=== PATIENT | female | born 1960 | race African-American/Black ===

== ENCOUNTER → 2016-12-04 | Outpatient (CLI) | payer OTHER ==
[2016-05-20 17:15] VITALS: BP 134/73
--- NOTE | 2016-12-04 12:05 | KCIC ---
Examination: Ultrasound pelvis. HISTORY Dysfunctional uterine bleeding. COMPARISON None available. FINDINGS The uterus measures 5.3 x 3.3 x 3.9 centimeters. The endometrium measures 1.02 centimeters in thickness. The right ovary measures 2.1 x 1.5 x 2.6 centimeters. The left ovary measures 2.0 x 1.0 x 1.9 centimeters. Blood flow identified right and left ovaries. No evidence of free fluid identified in the pelvis. The uterus is retroflexed. IMPRESSION Prominent appearing endometrium measuring 1 centimeter in transverse dimension. If patient is postmenopausal (given the age), this could represent thickened endometrium with differential of endometrial hyperplasia, drug therapy, endometrial malignancy. Clinical correlation is suggested. Electronically signed by: Troy Leigh (Dec 04, 2016 12:04:04)
--- NOTE | 2016-12-04 12:09 | KCIC ---
Examination: Ultrasound abdomen complete HISTORY History of pelvic pain. COMPARISON None available. Findings: The visualized pancreas grossly appears unremarkable. The visualized IVC, aorta appear patent. There is probable mild increased echogenicity noted throughout the liver likely hepatic steatosis. No evidence of gallstones identified.The gallbladder wall thickness measures 1.3 millimeters. The common bile duct measures 3.6 millimeters in transverse dimension. The right kidney measures 10.6 x 4.1 x 5.9 centimeters. The left kidney measures 10.6 x 5.0 x 3.3 centimeters. The spleen measures 7.9 centimeters in length. IMPRESSION Probable mild increase echogenicity of the liver likely hepatic steatosis, otherwise unremarkable exam. Electronically signed by: Troy Leigh (Dec 04, 2016 12:08:16)
--- NOTE | 2016-12-04 12:12 | KCIC ---
Examination: Two-view soft tissue neck HISTORY History of bilateral posterior neck swelling. COMPARISON None Findings : No evidence of prevertebral soft tissue swelling identified. There is mild to moderate intervertebral disc height loss identified at C4-C5, C5-C6 vertebral levels. The facets are well aligned. Small anterior osteophyte formation identified at C4, C5 vertebral levels. The visualized epiglottis, grossly appears unremarkable. IMPRESSION Moderate degenerative changes cervical spine. Electronically signed by: Troy Leigh (Dec 04, 2016 12:11:13)
--- NOTE | 2016-12-04 12:38 | KCIC ---
Examination: Two views chest. HISTORY History of upper back soft tissue swelling. COMPARISON None available Findings: The cardiomediastinal silhouette grossly appears unremarkable. There is no acute infiltrate or visualized pneumothorax identified. Impression: No acute cardiopulmonary findings. Electronically signed by: Troy Leigh (Dec 04, 2016 12:37:41)
--- NOTE | 2016-12-04 13:15 | KCIC ---
PROCEDURE Bilateral digital mammogram with CAD HISTORY Routine screening TECHNIQUE Bilateral digital routine views were obtained with computer-aided detection. COMPARISON August 22, 2015 FINDINGS Density D: Predominantly dense ffibroglandular tissue. There is asymmetric tissue density anteriorly in the right breast on the MLO view. There is no suspicious calcifications or areas of architectural distortion. IMPRESSION Asymmetric tissue density on of the right. Recommend they patient return for a spot MLO and true lateral view of the right breast as well as ultrasound. The patient and the clinical service will be contacted by the Radiology staff for further instructions. The breast tissue is dense. Mammography is less sensitive for abnormalities in areas of dense tissue. This study was interpreted with the benefit of Computerized Aided Detection (CAD). Mammography is not 100% sensitive in detecting breast cancer. Therefore, a self breast exam and a clinical breast exam are very important. A negative mammogram does not negate a clinically suspicious finding and should not result in a delay in biopsying a clinically suspicious abnormality. BI-RADS category 0: Incomplete. Electronically signed by: Zhou Farmer MD (Dec 04, 2016 13:13:33)
== END | disposition home or self-care (01) ==
LOC: KCIC US 09:39
PROVIDERS: ATTEND Family Medicine
DX: Z12.31 Encounter for screening mammogram for malignant neoplasm of breast (principal); R10.32 Left lower quadrant pain; M79.89 Other specified soft tissue disorders
CPT/HCPCS: 70360; 71020; 76700; 76830; 76856; G0202; 77067

== ENCOUNTER → 2016-12-17 | Outpatient (CLI) | payer OTHER ==
[2016-05-20 17:15] VITALS: BP 134/73
--- NOTE | 2016-12-17 13:37 | RAD ---
DATE: 12/17/2016 EXAM: DIGITAL DIAGNOSTIC RT HISTORY: Possible abnormality seen on screening COMPARISON: Screening examination 12/04/2016 This study was interpreted with the benefit of Computerized Aided Detection (CAD). FINDINGS: The breast parenchyma unchanged relative to the screening exam. An ML view and coned compression MLO views were obtained. On the additional views no definite mass or abnormality is seen and the findings, on the original examination, likely reflects summation artifact. A follow-up examination of the right breast is suggested in 6 months to confirm stability IMPRESSION: Probable benign findings. BI-RADS CATEGORY: 3 PROBABLE BENIGN FINDING(S-SHORT INTERVAL FOLLOW-UP SUGGESTED RECOMMENDED FOLLOW-UP: 6M 6 MONTH FOLLOW-UP PQRS compliance statement: Patient information was entered into a reminder system with a target due date 06/19/2017 for the next mammogram. Mammography is a sensitive method for finding small breast cancers, but it does not detect them all and is not a substitute for careful clinical examination. A negative mammogram does not negate a clinically suspicious finding and should not result in delay in biopsying a clinically suspicious abnormality. "Our facility is accredited by the [employer] Mammography [employer]."
== END | disposition home or self-care (01) ==
LOC: KCIC MAMMO 12:52
PROVIDERS: ATTEND Family Medicine
DX: R92.8 Other abnormal and inconclusive findings on diagnostic imaging of breast (principal)
CPT/HCPCS: G0206; 77065

== ENCOUNTER → 2017-07-21 | Outpatient (CLI) | payer OTHER ==
[2016-05-20 17:15] VITALS: BP 134/73
--- NOTE | 2017-07-21 11:05 | KCIC ---
DATE: 07/21/2017 EXAM: MAMMO GALE SUG BILAT, BREAST BILATERAL HISTORY: 6 month follow-up right breast and lump in the left breast COMPARISON: 12/17/2016, 12/04/2016 This study was interpreted with the benefit of Computerized Aided Detection (CAD). FINDINGS: Breast Density: HETERO The breast parenchyma Is heterogeneouslyy dense, which could reduce sensitivity of mammography. Breast parenchyma level C. There is a small nodule or lymph node identified in the right inner mid breast. There is a small nodule or lymph node identified in the left upper outer quadrant of the breast. Targeted ultrasound the right breast from 2 to 4:00 position and the left breast in the left upper outer quadrant demonstrates no definite evidence of mass or lesion. IMPRESSION: Probably benign findings. A mass or lesion could not be identified on the ultrasound however small nodules or lymph nodes are identified on the mammogram , recommend follow-up bilateral mammogram in 3 months. BI-RADS CATEGORY: 3 PROBABLE BENIGN-SHORT TERM F/U RECOMMENDED FOLLOW-UP: 3M 3 MONTH FOLLOW-UP PQRS compliance statement: Patient information was entered into a reminder system with a target due date 10/19/2017 for the next mammogram. Mammography is a sensitive method for finding small breast cancers, but it does not detect them all and is not a substitute for careful clinical examination. A negative mammogram does not negate a clinically suspicious finding and should not result in delay in biopsying a clinically suspicious abnormality. "Our facility is accredited by the [employer] Mammography Program."
== END | disposition home or self-care (01) ==
LOC: KCIC MAMMO 08:13
PROVIDERS: ATTEND Family Medicine
DX: N63.20 Unspecified lump in the left breast, unspecified quadrant (principal)
CPT/HCPCS: 76641; G0204; G0279; 77062; 77066

== ENCOUNTER → 2017-11-03 | Outpatient (CLI) | payer OTHER | END | disposition home or self-care (01) | LOC: KCIC MAMMO 12:02 | DX: N63.20 Unspecified lump in the left breast, unspecified quadrant (principal); M47.892 Other spondylosis, cervical region; M25.78 Osteophyte, vertebrae; G89.29 Other chronic pain | CPT/HCPCS: 72050; 77066; G0279 ==

== ENCOUNTER → 2017-12-08 | Outpatient (CLI) | payer OTHER ==
[2017-12-08] MEDS: GADOBUTROL 10 MMOL/10 ML VIAL IV (15:46)
== END | disposition home or self-care (01) ==
LOC: MRI 14:33
DX: H74.8X3 Other specified disorders of middle ear and mastoid, bilateral (principal); R51 Headache
CPT/HCPCS: 70553; A9585

== ENCOUNTER 2018-05-05 16:10 | Inpatient (IN) | payer OTHER ==
[~2018-05-05] VITALS: Ht 167.6 cm; Wt 110.4 kg
[2018-05-05 19:30] VITALS: BP 146/84
[2018-05-05] MEDS ORDERED: ACETAMINOPHEN 500 MG TABLET PO PRN (20:30)
--- NOTE | 2018-05-05 20:30 | PDOC2 ---
NEUROLOGY CONSULT Date of Admission Date of Admission DATE: 05/05/18 TIME: 20:17 Reason for Consult Reason for Consult: IMPRESSION: Intractable headaches. Pseudotumor cerebri? Obesity. RECOMMENDATIONS/PLAN: Metoprolol 25 mg HS. Tylenol 325 mg to 500 mg q8h prn. Morphine 1 mg IV q6h prn. Pain control. Hold Topamax before LP. LP to measure CSF opening and closing pressures. CSF lab studies, see orders. Weight reduction. HISTORY OF THE PRESENT ILLNESS: This is a 57-year-old AA female patient who presented to the [facility] Neurology Clinic today for the follow up clinic visit of worsening of chronic headaches. In the previous clinic visit, she stated that she had been having chronic headaches for about 30 years, but her headaches became worse recently. She has frequent headaches with severe headaches at least 2-3 times a week. She stated she wakes up in the morning associated with headaches, and headache wakes her up during night sometimes as well. Her headaches were described as pressure type of pain in her entire head but more obvious in her occipital head. She rated her headaches moderate to severe or 7-8/10. She has photophobia in her migraine headaches. Sh was started treatment with Beta-Abad. She came today stating her headaches became worse on a daily basis, and she was unable to functioning. Her brain MRI w/wo contrast on 12/08/17 reported no abnormal findings intracranially except parasinus disease and mastoid effusion. PAST MEDICAL HISTORY: Please see above. PAST SURGERY HISTORY: Hernia repair. No major surgery recently. ALLERGY: Codeine, shell fish. MEDICATIONS: Refer to [facility]ILY HISTORY: Non contributory. SOCIAL HISTORY: Lives at home. Denies current smoking, drinking, and illicit drug use. REVIEW OF SYSTEMS: Constitutional: Obesity. Head: No traumatic brain or head injury. Skin: No edema, or rash. Ear: No infection, tinnitus. Eyes: No vision loss or color blindness. Nose: No bleeding or purulent discharges. Hearing: No hearing decrease. Neck: No injury. Breast: No history of cancer, masses,or discharges. Cardiac: No KS, arrhythmia,claudication.. Pulmonary: No pneumonia, COPD. GI: No GI ulcer, GI bleeding. Urinary/genital: UTI. Endocrinologic: Obesity. Skeletomuscular: No muscular atrophy, deformity Neurological: see HP. Psychiatric: Denies drug use/abuse. Otherwise, not -sewmh review of systems. PHYSICAL EXAMINATION: General appearance is in subacute distress. HEENT: Normocephalic and nontraumatic. Eyes, nose, ears, and throat are unremarkable. Neck is supple. No lymphadenopathy. No bruits are heard over the carotid artery. No crepitus. Cardiovascular: S1, S2, regular rate and rhythm. Pulmonary: Clear to auscultation bilaterally. Abdomen: Bowel sounds are positive. Abdomen is soft, nontender, and nondistended. Extremities: No rash, lesions, or edema. No restriction of range of motion NEUROLOGICAL EXAMINATION: Alert Oriented to time, place and person. PERRL. EOMI. CN: no focal findings. Muscle tone: within normal. Muscle strength: 5 DTR: 2 Plantar reflex: Flexor response bilaterally Gait: At baseline normal. Sensory exam: no abnormal findings. No cerebellar signs elicited. F-T-N test accurate. Allergies Allergies: Allergies Coded Allergies Type Severity Reaction Last Updated Verified codeine Allergy Intermediate 01/02/16 Yes shellfish derived Allergy Unknown 12/08/17 Yes ROS Review of System The patient denies any associated fevers, chills, headache, ear pain, rhinorrhea , sore throat, stiff neck, productive cough, chest pain, shortness of breath, back or flank pain, abdominal pain, nausea, vomiting, diarrhea, constipation, dysuria, rash, numbness, weakness, tingling, incontinence, difficulty ambulating, or diaphoresis. Physical Exam Physical Exam General: Well developed, well nourished, no acute distress, well appearing HEENT: Pupils equally round and reactive to light, EOMI, no discharge, normal conjunctiva Neck: Supple, no nuchal rigidity, no JVD, trachea midline, no tenderness Cardiac: RRR, no murmurs, no gallops, no rubs Chest/Lungs: CTAB, no wheeze, no rhonchi, no crackles Abdomen: soft, non-distended, no guarding, no peritoneal signs, non-tender Back: No tenderness Extremities: no edema, pulses intact, non-tender,capillary refill <3 sec bilateral upper and lower extremities, Neuro: Alert and oriented x 4, no focal deficits, normal speech NILDA TORRES MD May 05, 2018 20:30
[2018-05-05] MEDS ORDERED: diphenhydrAMINE 50 MG/ML VIAL IVP PRN (20:45)
[2018-05-05] MEDS ORDERED: LORazepam 0.5 MG TABLET PO PRN (20:45)
[2018-05-05] MEDS ORDERED: MAG HYDROX/ALUMINUM HYD/SIMETH 30 ML ORAL.SUSP PO PRN (20:45)
[2018-05-05] MEDS ORDERED: cloNIDine HCL 0.1 MG TABLET PO PRN (20:45)
[2018-05-05] MEDS ORDERED: 0.9 % SODIUM CHLORIDE 3ML DISP.SYRIN. IV PRN (20:45)
[2018-05-05] MEDS ORDERED: ACETAMINOPHEN 650 MG/20.3 ML SOLUTION. GT PRN (20:45)
[2018-05-05] MEDS ORDERED: ALBUTEROL SULFATE 2.5 MG/3 ML NEBU. NEB PRN (20:45)
[2018-05-05] MEDS ORDERED: ONDANSETRON PF 4 MG/2 ML VIAL. IV PRN (20:45)
[2018-05-05] MEDS ORDERED: SODIUM PHOSPHATES 19/7GM 133 ML ENEMA. PR PRN (20:45)
[2018-05-05] MEDS ORDERED: guaiFENesin ORAL 200 MG/10 ML LIQUID. PO PRN (20:45)
[2018-05-05] MEDS ORDERED: DOCUSATE SODIUM 100 MG CAPSULE. PO PRN (20:45)
[2018-05-05] MEDS ORDERED: HYDROcodone/APAP 5/325MG 1 TAB TABLET PO PRN ×2 (21:00)
[2018-05-05] MEDS: METOPROLOL SUCC 24HR ER 25 MG TAB.ER.24H. PO SCH (22:29)
[2018-05-05] MEDS: ACETAMINOPHEN 325 MG TABLET. PO PRN (22:29)
[2018-05-05] MEDS: IV NORMAL SALINE 1000ML BAG 1,000 ML IV SCH (22:30)
[2018-05-05 23:14] VITALS: BP 140/63
[2018-05-05 23:53] LABS: ALBUMIN 3.2 g/dL (3.4-5.0); CREATININE 0.8 mg/dL (0.6-1.0); GFR 89.8
[2018-05-06] MEDS: IV NORMAL SALINE 1000ML BAG 1,000 ML IV SCH ×2 (01:30→13:20)
[2018-05-06 03:10] VITALS: BP 137/80
[2018-05-06 05:52] LABS: CREATININE 0.8 mg/dL (0.6-1.0); GFR 89.8
[2018-05-06] MEDS: KETOROLAC 30 MG/ML VIAL. IV PRN ×2 (06:25→14:56)
[2018-05-06 07:00] VITALS: BP 114/84
--- NOTE | 2018-05-06 08:15 | RAD ---
Portable chest, 05/05/2018: HISTORY: Headache Comparison is made to a study from 12/04/2016. The heart size and pulmonary vascularity are normal. No pulmonary infiltrate is seen. There is no evidence of pleural fluid. IMPRESSION: No acute cardiopulmonary abnormality is detected. Electronically signed by: Mal Dudley MD (05/06/2018 8:12 AM) [facility]
[2018-05-06] MEDS: ACETAMINOPHEN 325 MG TABLET. PO PRN (08:35)
[2018-05-06] MEDS ORDERED: LIDOCAINE WITH 8.4% SOD BICARB 3 ML DISP.SYRIN. INJ ONE ×2 (08:45→11:30)
--- NOTE | 2018-05-06 08:48 | PDOC1 ---
History and Physical Date of Admission Date of Admission DATE: 05/06/18 TIME: 08:47 Source Source: Chart review, Patient History of Present Illness History of Present Illness Ms. Lopez is a 57-year-old AA female patient admit from Neurology Clinic acute on chronic headaches. 30 years of problems, now itractable hadache last night, minor improvement this AM. She has frequent headaches with severe headaches at least 2-3 times a week. She stated she wakes up in the morning associated with headaches, and headache wakes her up during night sometimes as well. Her headaches were described as pressure type of pain in her entire head but more obvious in her occipital head. She rated her headaches moderate to severe or 7-8/10. She has photophobia in her migraine headaches. she works in [employer] Past Medical History Cardiovascular: HTN CENTRAL NERVOUS SYSTEM: Migraine, Other (headaches) Family History Family History: No Significant Social History Smoke: No ALCOHOL: none Drugs: None Current Medications Current Medications Current Medications Metoprolol Succinate (Toprol Xl) 25 mg HS PO Last administered on 05/05/18at 22: 29; Start 05/05/18 at 21:00 Acetaminophen (Tylenol) 500 mg PRN Q6HRS PRN PO MILD PAIN / TEMP; Start at 20:30 Sodium Chloride (Normal Saline Flush 3ml) 3 ml QSHIFT PRN IV AFTER MEDS AND BLOOD DRAWS; Start 05/05/18 at 20:45 Sodium Chloride 1,000 ml @ 100 mls/hr Q10H IV Last administered on 05/05/18at 22:30; Start 05/05/18 at 20:43 Ondansetron HCl (Zofran) 4 mg PRN Q4HRS PRN IV NAUSEA/VOMITING; Start 05/05/18 at 20:45 Acetaminophen (Tylenol) 650 mg PRN Q4HRS PRN PO TEMP OVER 100.4F OR MILD PAIN Last administered on 05/06/18at 08:35; Start 05/05/18 at 20:45 Acetaminophen (Tylenol) 650 mg PRN Q4HRS PRN GT TEMP OVER 100.4F OR MILD PAIN; Start 05/05/18 at 20:45 Al Hydroxide/Mg Hydroxide (Mylanta Plus Xs) 30 ml PRN DAILY PRN PO HEARTBURN / GAS; Start 05/05/18 at 20:45 Clonidine HCl (Catapres) 0.1 mg PRN Q6HRS PRN PO SBP>160 OR DBP>90; Start 05/05 at 20:45 Sodium Monofluorophosphate (Fleet Adult) 133 ml PRN DAILY PRN MN CONSTIPATION; Start 05/05/18 at 20:45 Diphenhydramine HCl (Benadryl) 25 mg PRN Q4HRS PRN IVP ITCHING; Start 05/05/18 at 20:45 Docusate Sodium (Colace) 100 mg PRN BID PRN PO CONSTIPATION; Start 05/05/18 at 20:45 Albuterol Sulfate (Ventolin Neb Soln) 2.5 mg PRN Q4HRS PRN NEB SHORTNESS OF BREATH; Start 05/05/18 at 20:45 Guaifenesin (Robitussin) 200 mg PRN Q4HRS PRN PO COUGH; Start 05/05/18 at 20:45 Lorazepam (Ativan) 0.5 mg PRN Q4HRS PRN PO ANXIETY / AGITATION; Start 05/05/18 at 20:45 Acetaminophen/ Hydrocodone Bitart (Lortab 5/325) 1 tab PRN Q6HRS PRN PO PAIN; Start 05/05/18 at 21:00; Stop 05/05/18 at 21:07; Status DC Acetaminophen/ Hydrocodone Bitart (Lortab 5/325) 2 tab PRN Q6HRS PRN PO PAIN; Start 05/05/18 at 21:00; Stop 05/05/18 at 21:07; Status DC Ketorolac Tromethamine (Toradol 30mg Vial) 30 mg PRN Q6HRS PRN IV PAIN Last administered on 05/06/18at 06:25; Start 05/06/18 at 06:30; Stop 05/11/18 at 06:29 Lidocaine/Sodium Bicarbonate (Buffered Lidocaine 1%) 6 ml 1X ONCE INJ ; Start 05/06/18 at 08:45; Stop 05/06/18 at 08:46; Status DC Allergies Allergies: Coded Allergies: codeine (Verified Allergy, Intermediate, 01/02/16) shellfish derived (Verified Allergy, Unknown, 12/08/17) ROS General: No: Chills, Night Sweats, Fatigue, Malaise, Appetite, Other PSYCHOLOGICAL ROS: No: Anxiety, Behavioral Disorder, Concentration difficultie , Decreased libido, Depression, Disorientation, Hallucinations, Hostility, Irritablity, Memory difficulties, Mood Swings, Obsessive thoughts, Physical abuse, Sexual abuse, Sleep disturbances, Suicidal ideation, Other Eyes: No Blurry vision, No Decreased vision, No Double vision, No Dry eyes, No Excessive tearing, No Eye Pain, No Itchy Eyes, No Loss of vision, No Photophobia , No Scotomata, No Uses contacts, No Uses glasses, No Other HEENT: YES: Heacaches, Sinus pain, Other; No: Visual Changes, Hearing change, Nasal congestion, Nasal discharge, Oral lesions, Sore Throat, Epistaxis, Sneezing, Snoring, Tinnitus, Vertigo, Vocal changes Respiratory: No: Cough, Hemoptysis, Orthopnea, Pleuritic Pain, Shortness of breath, SOB with excertion, Sputum Changes, Stridor, Tachypnea, Wheezing, Other Cardiovascular: No Chest Pain, No Palpitations, No Orthopnea, No Paroxysmal Noc. Dyspnea, No Edema, No Lt Headedness, No Other Gastrointestinal: Yes Nausea Genitourinary: No Dysuria, No Frequency, No Incontinence, No Hematuria, No Retention, No Discharge, No Urgency, No Pain, No Flank Pain, No Other, No , No , No , No , No , No , No Musculoskeletal: No Gait Disturbance, No Joint Pain, No Joint Stiffness, No Joint Swelling, No Muscle Pain, No Muscular Weakness, No Pain In:, No Swelling In:, No Other Neurological: No Behavorial Changes, No Bowel/Bladder ControlChng, No Confusion , No Dizziness, No Gait Disturbance, No Headaches, No Impaired Coord/balance, No Memory Loss, No Numbness/Tingling, No Seizures, No Speech Problems, No Tremors, No Visual Changes, No Weakness, No Other Skin: Yes Dry Skin; No Eczema, No Hair Changes, No Lumps, No Mole Changes, No Mottling, No Nail Changes, No Pruritus, No Rash, No Skin Lesion Changes, No Other, No Acne Physical Exam General: Alert, Cooperative, mild distress HEENT: EOMI, Mucous membr. moist/pink Lungs: Clear to auscultation Heart: S1S2, no gallops, no murmurs Abdomen: Normal bowel sounds, Soft Extremities: No edema, Normal pulses Skin: No breakdown, No significant lesion Neuro: Normal speech, Normal tone, Sensation intact Psych/Mental Status: Mental status NL, Mood NL Vitals Vitals Vital Signs Date Time Temp Pulse Resp B/P (MAP) Pulse Ox O2 Delivery O2 Flow Rate FiO2 05/06/18 07:00 98.2 53 16 114/84 (94) 99 Room Air 98.2 Labs Labs Laboratory Tests Test 05/05/18 23:00 05/06/18 02:00 Creatinine 0.8 mg/dL (0.6-1.0) 0.8 mg/dL (0.6-1.0) Estimated GFR (Cockcroft-Gault) 89.8 89.8 Albumin 3.2 g/dL (3.4-5.0) Laboratory Tests Test 05/05/18 23:00 05/06/18 02:00 Creatinine 0.8 mg/dL (0.6-1.0) 0.8 mg/dL (0.6-1.0) Estimated GFR (Cockcroft-Gault) 89.8 89.8 Albumin 3.2 g/dL (3.4-5.0) VTE Prophylaxis Ordered VTE Prophylaxis Devices: No VTE Pharmacological Prophylaxi: Yes Assessment/Plan Assessment/Plan intractable headache migrane headache htn obesity, BMI 39 admit, LP today, Neuro consult r/o pseudotumor cerebri other pain meds PRN PCP Dr. Morrison office, he has retired CARLOS A FRANKEL MD May 06, 2018 08:48
[2018-05-06 11:00] VITALS: BP 134/73
--- NOTE | 2018-05-06 11:11 | PDOC ---
Provider Note Provider Note The fluoro guided LP was performed utilizing a 20g needle without difficulty. 8cc of clear CSF was removed and sent to the lab. The opening pressure was 21 and the closing pressure was 19. The patient tolerated the procedure well and left the radiology department in good condition. WILFREDO LAMBERT MD May 06, 2018 11:11
--- NOTE | 2018-05-06 11:19 | RAD ---
Fluoroscopically guided lumbar puncture, 05/06/2018: History: Headaches, possible pseudotumor cerebri Under local anesthesia, aseptic conditions and fluoroscopic guidance a lumbar puncture was performed at the L2-3 level utilizing a 20-gauge spinal needle. Good clear CSF flow was obtained. The opening pressure was measured at 21 cm of water. A total of 8 cc of CSF was removed and sent to lab for appropriate studies. The closing pressure was measured at 19 cm of water. The spinal needle was then removed and hemostasis obtained. 1.4 minutes of fluoroscopy time was utilized. One fluoroscopic spot image was recorded. The patient tolerated the procedure well and was returned to the floor in stable condition.
[2018-05-06 12:03] LABS: CSF CLARITY CLEAR; CSF COLOR COLORLESS; CSF RBC COUNT 0; CSF WBC COUNT 0
[2018-05-06] MEDS: TOPIRAMATE 25 MG TABLET. PO SCH ×2 (14:55→20:36)
[2018-05-06] MEDS: acetaZOLAMIDE 250 MG TABLET. PO SCH ×2 (14:55→20:35)
[2018-05-06 15:00] VITALS: BP 142/72
--- NOTE | 2018-05-06 19:09 | PDOC ---
PROGRESS NOTES Assessment Assessment Intractable headaches. Migraine headache. IIP. Obesity. RECOMMENDATIONS/PLAN: Metoprolol 25 mg HS. Topamax 25 mg bid, increase 25 mg q week up to 100 mg bid, then re-assess. Diamox 250 mg tid. Weight reduction. FU at Neurology Clinic in 6-7 weeks. CSF opening pressure 21, and closing pressure 19. HISTORY OF THE PRESENT ILLNESS: This is a 57-year-old AA female patient who presented to the [facility] today for the follow up clinic visit of worsening of chronic headaches. In the previous clinic visit, she stated that she had been having chronic headaches for about 30 years, but her headaches became worse recently. She has frequent headaches with severe headaches at least 2-3 times a week. She stated she wakes up in the morning associated with headaches, and headache wakes her up during night sometimes as well. Her headaches were described as pressure type of pain in her entire head but more obvious in her occipital head. She rated her headaches moderate to severe or 7-8/10. She has photophobia in her migraine headaches. Sh was started treatment with Beta-Abad. She came today stating her headaches became worse on a daily basis, and she was unable to functioning. Her brain MRI w/wo contrast on 12/08/17 reported no abnormal findings intracranially except parasinus disease and mastoid effusion. PAST MEDICAL HISTORY: Please see above. PAST SURGERY HISTORY: Hernia repair. No major surgery recently. ALLERGY: Codeine, shell fish. MEDICATIONS: Refer to [facility] FAMILY HISTORY: Non contributory. SOCIAL HISTORY: Lives at home. Denies current smoking, drinking, and illicit drug use. REVIEW OF SYSTEMS: Constitutional: Obesity. Head: No traumatic brain or head injury. Skin: No edema, or rash. Ear: No infection, tinnitus. Eyes: No vision loss or color blindness. Nose: No bleeding or purulent discharges. Hearing: No hearing decrease. Neck: No injury. Breast: No history of cancer, masses,or discharges. Cardiac: No DC, arrhythmia,claudication.. Pulmonary: No pneumonia, COPD. GI: No GI ulcer, GI bleeding. Urinary/genital: UTI. Endocrinologic: Obesity. Skeletomuscular: No muscular atrophy, deformity Neurological: see HP. Psychiatric: Denies drug use/abuse. Otherwise, not [id number] review of systems. PHYSICAL EXAMINATION: General appearance is in subacute distress. HEENT: Normocephalic and nontraumatic. Eyes, nose, ears, and throat are unremarkable. Neck is supple. No lymphadenopathy. No bruits are heard over the carotid artery. No crepitus. Cardiovascular: S1, S2, regular rate and rhythm. Pulmonary: Clear to auscultation bilaterally. Abdomen: Bowel sounds are positive. Abdomen is soft, nontender, and nondistended. Extremities: No rash, lesions, or edema. No restriction of range of motion NEUROLOGICAL EXAMINATION: Alert Oriented to time, place and person. PERRL. EOMI. CN: no focal findings. Muscle tone: within normal. Muscle strength: 5 DTR: 2 Plantar reflex: Flexor response bilaterally Gait: At baseline normal. Sensory exam: no abnormal findings. No cerebellar signs elicited. F-T-N test accurate. Objective Objective Vital Signs Date Time Temp Pulse Resp B/P (MAP) Pulse Ox O2 Delivery O2 Flow Rate FiO2 05/06/18 15:00 98.3 62 16 142/72 (95) 97 Room Air 98.3 Intake and Output 05/06/18 07:00 Intake Total 260 ml Output Total 500 ml Balance -240 ml Intake Oral 260 ml Output Urine Total 500 ml Vitals Signs Vitals VS - Last 72 Hours, by Label Date Time Temp Pulse Resp B/P (MAP) Pulse Ox O2 Delivery O2 Flow Rate FiO2 05/06/18 15:00 98.3 62 16 142/72 (95) 97 Room Air 98.3 05/06/18 11:00 97.4 55 16 134/73 (93) 100 Room Air 97.4 05/06/18 09:09 100 Room Air 05/06/18 08:00 Room Air 05/06/18 07:00 98.2 53 16 114/84 (94) 99 Room Air 98.2 05/06/18 03:10 98.0 69 20 137/80 (99) 100 Room Air 98.0 05/05/18 23:14 98.1 73 18 140/63 (88) 97 Room Air 98.1 05/05/18 22:29 70 146/84 05/05/18 20:00 Room Air 05/05/18 19:30 97.8 70 20 146/84 (104) 100 Room Air 97.8 Laboratory Laboratory Laboratory Tests Test 05/05/18 23:00 05/06/18 02:00 05/06/18 10:55 Creatinine 0.8 mg/dL (0.6-1.0) 0.8 mg/dL (0.6-1.0) Estimated GFR (Cockcroft-Gault) 89.8 89.8 Albumin 3.2 g/dL (3.4-5.0) CSF Color Colorless CSF Clarity Clear CSF WBC 0 CSF RBC 0 CSF Glucose 65 mg/dL (37-70) CSF Total Protein 28.0 mg/dL (15.0-45.0) Microbiology 05/06/18 CSF Gram Stain - Final, Complete Medication Medications Current Medications Acetaminophen (Tylenol) 500 mg PRN Q6HRS PRN PO MILD PAIN / TEMP; Start at 20:30; Stop 05/06/18 at 14:05; Status DC Acetaminophen (Tylenol) 650 mg PRN Q4HRS PRN GT TEMP OVER 100.4F OR MILD PAIN; Start 05/05/18 at 20:45 Acetaminophen (Tylenol) 650 mg PRN Q4HRS PRN PO TEMP OVER 100.4F OR MILD PAIN Last administered on 05/06/18at 08:35; Start 05/05/18 at 20:45 Acetaminophen/ Hydrocodone Bitart (Lortab 5/325) 1 tab PRN Q6HRS PRN PO PAIN; Start 05/05/18 at 21:00; Stop 05/05/18 at 21:07; Status DC Acetaminophen/ Hydrocodone Bitart (Lortab 5/325) 2 tab PRN Q6HRS PRN PO PAIN; Start 05/05/18 at 21:00; Stop 05/05/18 at 21:07; Status DC Acetazolamide (Diamox) 250 mg TID PO Last administered on 05/06/18at 14:55; Start 05/06/18 at 14:00 Al Hydroxide/Mg Hydroxide (Mylanta Plus Xs) 30 ml PRN DAILY PRN PO HEARTBURN / GAS; Start 05/05/18 at 20:45 Albuterol Sulfate (Ventolin Neb Soln) 2.5 mg PRN Q4HRS PRN NEB SHORTNESS OF BREATH; Start 05/05/18 at 20:45 Clonidine HCl (Catapres) 0.1 mg PRN Q6HRS PRN PO SBP>160 OR DBP>90; Start 05/05 at 20:45 Diphenhydramine HCl (Benadryl) 25 mg PRN Q4HRS PRN IVP ITCHING; Start 05/05/18 at 20:45 Docusate Sodium (Colace) 100 mg PRN BID PRN PO CONSTIPATION; Start 05/05/18 at 20:45 Guaifenesin (Robitussin) 200 mg PRN Q4HRS PRN PO COUGH; Start 05/05/18 at 20:45 Ketorolac Tromethamine (Toradol 30mg Vial) 30 mg PRN Q6HRS PRN IV PAIN Last administered on 05/06/18at 14:56; Start 05/06/18 at 06:30; Stop 05/11/18 at 06:29 Lidocaine/Sodium Bicarbonate (Buffered Lidocaine 1%) 3 ml 1X ONCE INJ ; Start 05/06/18 at 11:30; Stop 05/06/18 at 11:31; Status DC Lidocaine/Sodium Bicarbonate (Buffered Lidocaine 1%) 6 ml 1X ONCE INJ Last administered on 05/06/18at 10:45; Start 05/06/18 at 08:45; Stop 05/06/18 at 08:46 ; Status DC Lorazepam (Ativan) 0.5 mg PRN Q4HRS PRN PO ANXIETY / AGITATION; Start 05/05/18 at 20:45 Metoprolol Succinate (Toprol Xl) 25 mg HS PO Last administered on 05/05/18at 22: 29; Start 05/05/18 at 21:00 Ondansetron HCl (Zofran) 4 mg PRN Q4HRS PRN IV NAUSEA/VOMITING; Start 05/05/18 at 20:45 Sodium Monofluorophosphate (Fleet Adult) 133 ml PRN DAILY PRN VT CONSTIPATION; Start 05/05/18 at 20:45 Sodium Chloride 1,000 ml @ 100 mls/hr Q10H IV Last administered on 05/06/18at 13:20; Start 05/05/18 at 20:43 Sodium Chloride (Normal Saline Flush 3ml) 3 ml QSHIFT PRN IV AFTER MEDS AND BLOOD DRAWS; Start 05/05/18 at 20:45 Topiramate (Topamax) 25 mg BID PO Last administered on 05/06/18at 14:55; Start 9/21/18 at 13:00 Comment Review of Relevant I have reviewed the following items zeny (where applicable) has been applied. NILDA TORRES MD May 06, 2018 19:09
[2018-05-06 19:54] VITALS: BP 127/70
[2018-05-06] MEDS: METOPROLOL SUCC 24HR ER 25 MG TAB.ER.24H. PO SCH (20:35)
[2018-05-06] MEDS ORDERED: CALCIUM CARBONATE 500 MG TAB.CHEW PO PRN (23:15)
[2018-05-06 23:23] VITALS: BP 130/74
[2018-05-07] MEDS: IV NORMAL SALINE 1000ML BAG 1,000 ML IV SCH (01:30)
[2018-05-07 03:11] VITALS: BP 119/71
[2018-05-07 07:00] VITALS: BP 113/77
[2018-05-07] MEDS: TOPIRAMATE 25 MG TABLET. PO SCH (08:11)
[2018-05-07] MEDS: acetaZOLAMIDE 250 MG TABLET. PO SCH (08:11)
[2018-05-07] MEDS ORDERED: TOPI25TA52 PO ×2 (08:59→09:04)
[2018-05-07] MEDS ORDERED: METO-239 PO (08:59)
[2018-05-07] MEDS ORDERED: ACET250T2 PO (08:59)
[2018-05-07] MEDS ORDERED: TOPI50TA38 PO ×2 (08:59→09:04)
[2018-05-08 22:24] LABS: HERPES SIMPLEX TYPE 1 Negative (Negative); HERPES SIMPLEX TYPE 2 Negative (Negative)
== END 2018-05-07 11:44 | disposition home or self-care (01) | DRG 103 ==
LOC: 6 SOUTH 18:29
PROVIDERS: ADMIT Family Medicine; ATTEND Family Medicine
PROC: 009U3ZX Drainage of Spinal Canal, Percutaneous Approach, Diagnostic (ICD-10-PCS; principal; 2018-05-06)
DX: G43.909 Migraine, unspecified, not intractable, without status migrainosus (principal); E66.9 Obesity, unspecified; I10 Essential (primary) hypertension; Z68.39 Body mass index [BMI] 39.0-39.9, adult; Z88.5 Allergy status to narcotic agent; Z91.013 Allergy to seafood; Z79.899 Other long term (current) drug therapy
CPT/HCPCS: 36415; 62270; 71045; 82040; 82565; 82945; 84157; 87071; 87075; 87529; 89051; 96372; 96374; 96376; J1885; J7030; 99285-25

== ENCOUNTER → 2018-05-09 | Outpatient (CLI) | payer OTHER ==
[2018-05-07 07:00] VITALS: BP 113/77
[~2018-05-09] MED LIST: ACET250T2 PO; METO-239 PO; TOPI25TA52 PO; TOPI50TA38 PO
--- NOTE | 2018-05-09 15:25 | KCIC ---
DATE: 05/09/2018 EXAM: MAMMO GALE SUG BILAT HISTORY: 6 month follow-up COMPARISON: 11/03/2017, 07/21/2017 This study was interpreted with the benefit of Computerized Aided Detection (CAD). Breast Density: HETERO The breast parenchyma is heterogenously dense, which could reduce sensitivity of mammography. Breast parenchyma level C. FINDINGS: 2-D and 3-D tomosynthesis imaging was performed in CC and MLO projections. The fibroglandular tissues are heterogeneous in a slightly nodular pattern. An old breast biopsy markers again noted superiorly in the right breast. Faint nodular opacities noted medially in the right breast and superolateral in the left breast appear unchanged. No new or enlarging breast densities are seen. No spiculated mass or architectural distortion is evident. No suspicious microcalcifications are evident. IMPRESSION: Stable mammograms without evidence of malignancy. BI-RADS CATEGORY: 2 BENIGN FINDING(S) RECOMMENDED FOLLOW-UP: 12M 12 MONTH FOLLOW-UP PQRS compliance statement: Patient information was entered into a reminder system with a target due date for the next mammogram. Mammography is a sensitive method for finding small breast cancers, but it does not detect them all and is not a substitute for careful clinical examination. A negative mammogram does not negate a clinically suspicious finding and should not result in delay in biopsying a clinically suspicious abnormality. "Our facility is accredited by the [employer] Mammography Program."
== END | disposition home or self-care (01) ==
LOC: KCIC MAMMO 10:21
PROVIDERS: ATTEND Internal Medicine
DX: R92.8 Other abnormal and inconclusive findings on diagnostic imaging of breast (principal); I10 Essential (primary) hypertension; Z88.5 Allergy status to narcotic agent; Z88.6 Allergy status to analgesic agent; Z79.899 Other long term (current) drug therapy
CPT/HCPCS: 77066; G0279; 77062